=== PATIENT | female | born 1955 | race Caucasian/White ===

== ENCOUNTER 2017-05-11 07:04 | Emergency (ER) | payer MEDICAID, SELFPAY ==
[2017-05-11 07:13] VITALS: BP 120/66; PULSE 83; RESP 24; TEMP 37; O2SAT 96; BMI 16.9
--- NOTE | 2017-05-11 07:30 | XR_ITS ---
XR chest 2V INDICATION: Cough and weakness, smoker ORDERING PHYSICIAN: Casey Molina MD PATIENT AGE: 62 years FINDINGS: Unremarkable cardiovascular structures. There is COPD with chronic changes. Patchy density once again noted in the right upper lobe with right apical pleural thickening not significantly changed. This may be better evaluated with CT. The remaining lungs are clear. No acute bony anomalies. IMPRESSION: No change COPD with chronic changes in the right upper lobe may be better evaluated with CT.
--- NOTE | 2017-05-11 07:51 | HMH.EDURI ---
ED Disposition Condition on Discharge: Good - Critical Care Critical Care Time: No <Casey Molina - Last Filed: 05/11/17 07:51> <Eliecer Cruz - Last Filed: 05/11/17 09:22> Clinical Impression: Influenza Disposition: Home, Self-Care Instructions: DI for Fever (Symptom) -- Adult Additional Instructions: 1- rest. 2- plenty of liquids. 3- start tamiflyu as sooon as possible. 4- alternate tylenol and motrin. 5- see pcp in AM 6- return if not better in 2-3 days. Prescriptions: Oseltamivir Phosphate [Tamiflu 75mg Capsule] 75 mg PO BID #10 capsule Attestation: On 05/11/17, the high probability of a clinically significant, sudden or life threatening deterioration of the following system(s) required my full and direct attention, intervention and personal management. The time I documented below is in addition to time spent performing reported procedures but includes the following listed in this critical care notation. Medical Decision Making - Medical Records Medical records reviewed: Yes: I reviewed the patient's medical records. - Cong Inquiry Pt receiving controlled substance: No <Casey Molina - Last Filed: 05/11/17 07:51> - Lab Data Result diagrams: 05/11/17 07:45 05/11/17 07:45 - Radiology Data #1 Image(s): Chest Image Reviewed: Yes I reviewed the patient's radiology results Preliminary Findings: Normal/NAD - Cong Inquiry Cong was queried for this patient: No <Eliecer Cruz - Last Filed: 05/11/17 09:22> Vital Signs: 05/11/17 07:13 Temperature 98.6 F Temperature Source Oral Pulse Rate [Left Brachial] 83 Respiratory Rate 24 Blood Pressure [Left Arm] 120/66 Blood Pressure Mean [Left Arm] 84 Blood Pressure Source [Left Arm] Automatic Cuff Blood Pressure Position [Left Arm] Sitting 02 Sat by Pulse Oximetry 96 Oxygen Delivery Method Room Air Orders (Tests/Meds): ED MEDICATIONS Discontinued Medications Generic Name Dose Route Start Last Admin Trade Name Freq PRN Reason Stop Dose Admin Acetaminophen 1,000 mg 05/11/17 08:36 05/11/17 08:43 Tylenol 500mg Tablet PO 05/11/17 08:37 1,000 mg ONCE ONE Administration Sodium Chloride 1,000 mls @ 999 mls/hr 05/11/17 07:45 05/11/17 07:59 Sod Chloride 0.9% 1000ml Bag IV 05/11/17 08:45 999 mls/hr .Q1H1M CHIDI Administration ORDERS Category Date Time Status XR chest 2V Stat Exams 05/11/17 07:30 Taken URI/Sore Throat HPI - General Mode of Arrival: Ambulatory Source of Information: Patient, Relative Limitations: No Limitations Description of Symptoms (Recalled from ER Triage Doc. by RN): flulike symptoms, states has had body aches, fever,diarrhea, cough,congestion,runny. nose x 4 days - History of Present Illness MD Complaint: fever, cough Onset (ago): day(s) Duration: constant Severity: moderate Relieving factors: nothing Description of mucous: clear Able to tolerate fluids by mouth: Yes Associated symptoms: fever, myalgias Treatments prior to arrival: acetaminophen, ibuprofen <Casey Molina - Last Filed: 05/11/17 07:51> - History of Present Illness MD Complaint: other (non productive. 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
[2017-05-11 07:53] LABS: Basophils % 0.3 % (0.1-2.0); Eosinophils # 0.2 K/mm3 (0.0-0.4); Eosinophils % 2.2 % (0.1-12.0); Hemoglobin 13.9 g/dL (12.2-16.2); Lymphocytes # 1.6 K/mm3 (0.7-4.5); Lymphocytes % 22.9 K/mm3 (10-50); Mean Corpuscular Hemoglobin 30.8 pg (27.0-31.2); Mean Corpuscular Volume 90.6 fl (81-99); Mean Platelet Volume 8.5 fl (7.4-10.4); Monocytes # 0.3 K/mm3 (0.1-1.0); Monocytes % 4.2 % (1.7-9.3); Neutrophils % 70.3 % (37.0-80.0); Platelet Count 198 K/mm3 (142-424); Red Blood Count 4.52 M/mm3 (4.20-5.40); Red Cell Distribution Width 12.6 % (11.5-17.5); White Blood Count 7.1 K/mm3 (4.8-10.8)
--- NOTE | 2017-05-11 07:54 | ED_ITS ---
ED Disposition Condition on Discharge: Good - Critical Care Critical Care Time: No <Casey Molina - Last Filed: 05/11/17 07:51> <Eliecer Cruz - Last Filed: 05/11/17 09:22> Clinical Impression: Influenza Disposition: Home, Self-Care Instructions: DI for Fever (Symptom) -- Adult Additional Instructions: 1- rest. 2- plenty of liquids. 3- start tamiflyu as sooon as possible. 4- alternate tylenol and motrin. 5- see pcp in AM 6- return if not better in 2-3 days. Prescriptions: Oseltamivir Phosphate [Tamiflu 75mg Capsule] 75 mg PO BID #10 capsule Attestation: On 05/11/17, the high probability of a clinically significant, sudden or life threatening deterioration of the following system(s) required my full and direct attention, intervention and personal management. The time I documented below is in addition to time spent performing reported procedures but includes the following listed in this critical care notation. Medical Decision Making - Medical Records Medical records reviewed: Yes: I reviewed the patient's medical records. - Cong Inquiry Pt receiving controlled substance: No <Casey Molina - Last Filed: 05/11/17 07:51> - Lab Data Result diagrams: 05/11/17 07:45 05/11/17 07:45 - Radiology Data #1 Image(s): Chest Image Reviewed: Yes I reviewed the patient's radiology results Preliminary Findings: Normal/NAD - Cong Inquiry Cong was queried for this patient: No <Eliecer Cruz - Last Filed: 05/11/17 09:22> Vital Signs: 05/11/17 07:13 Temperature 98.6 F Temperature Source Oral Pulse Rate [Left Brachial] 83 Respiratory Rate 24 Blood Pressure [Left Arm] 120/66 Blood Pressure Mean [Left Arm] 84 Blood Pressure Source [Left Arm] Automatic Cuff Blood Pressure Position [Left Arm] Sitting 02 Sat by Pulse Oximetry 96 Oxygen Delivery Method Room Air Orders (Tests/Meds): ED MEDICATIONS Discontinued Medications Generic Name Dose Route Start Last Admin Trade Name Freq PRN Reason Stop Dose Admin Acetaminophen 1,000 mg 05/11/17 08:36 05/11/17 08:43 Tylenol 500mg Tablet PO 05/11/17 08:37 1,000 mg ONCE ONE Administration Sodium Chloride 1,000 mls @ 999 mls/hr 05/11/17 07:45 05/11/17 07:59 Sod Chloride 0.9% 1000ml Bag IV 05/11/17 08:45 999 mls/hr .Q1H1M CHIDI Administration ORDERS Category Date Time Status XR chest 2V Stat Exams 05/11/17 07:30 Taken URI/Sore Throat HPI - General Mode of Arrival: Ambulatory Source of Information: Patient, Relative Limitations: No Limitations Description of Symptoms (Recalled from ER Triage Doc. by RN): flulike symptoms, states has had body aches, fever,diarrhea, cough,congestion,runny. nose x 4 days - History of Present Illness MD Complaint: fever, cough Onset (ago): day(s) Duration: constant Severity: moderate Relieving factors: nothing Description of mucous: clear Able to tolerate fluids by mouth: Yes Associated symptoms: fever, myalgias Treatments prior to arrival: acetaminophen, ibuprofen <Casey Molina - Last Filed: 05/11/17 07:51> - History of Present Illness MD Complaint: other (non productive. ) Onset (ago): day(s) (3 days) Associated symptoms: cough <Viral Cruz
[2017-05-11 07:56] LABS: Anion Gap 11.3 mEq/L (5-15); Blood Urea Nitrogen 6 mg/dL (7-18); Carbon Dioxide 25 mmol/L (21.0-32.0); Chloride 105 mmol/L (98-107); Creatinine Clearance Estimated 67 mg/ml (0-300); Creatinine,Serum 0.61 mg/dL (0.55-1.02); Estimated Glomerular Filt Rate > 60 ml/min (>60); GFR (African American) > 60 ML/MIN (>60); Glucose 109 mg/dL (74-106); Potassium 3.3 mmoL/L (3.5-5.1); Sodium 138 mmol/L (136-145)
[2017-05-11 09:45] VITALS: BP 110/74; PULSE 70; RESP 14; TEMP 37.7; O2SAT 98
== END 2017-05-11 09:48 | disposition home or self-care (01) ==
PROVIDERS: Emergency Provider Emergency Medicine; Family Provider Emergency Medicine
DX: J11.1 Influenza due to unidentified influenza virus with other respiratory manifestations (principal)
CPT/HCPCS: 71046; 80048; 85025; 87275; 87276; 96365; 99284

== ENCOUNTER 2019-05-05 05:24 | Emergency (ER) | payer MEDICAID, SELFPAY ==
[2019-05-05 05:25] VITALS: BP 135/56; PULSE 113; RESP 16; TEMP 37.1; O2SAT 96
[2019-05-05 05:38] VITALS: BP 135/56; PULSE 113; RESP 16; TEMP 37.1; O2SAT 96; BMI 18.0
--- NOTE | 2019-05-05 06:00 | XR_ITS ---
PROCEDURE: XR CHEST 2V CLINICAL HISTORY: cough COMPARISON: CXR CHEST(2 VIEWS-NOT PORTABLE) from 01/31/2016 CXR2V XR chest 2V from 05/11/2017 FINDINGS: The cardiomediastinal silhouette and pulmonary vascularity are within normal limits. Hyperexpansion of the lung granados appear stable. The linear densities in the right upper lobe with associated pleural thickening remains stable. Lung granados are otherwise clear. No acute bony abnormalities. IMPRESSION: Chronic findings with probable scarring and pleural thickening in the right apex. Dictated by: Jacob Webb 05/05/2019 17:44 Electronically signed by Jacob Webb in [place] 05/05/2019 17:44
[2019-05-05 06:06] LABS: Basophils % 0.4 % (0.1-2.0); Eosinophils # 0.1 K/mm3 (0.0-0.4); Eosinophils % 1.4 % (0.1-12.0); Hematocrit 39.7 % (37.0-47.0); Hemoglobin 13.5 g/dL (12.2-16.2); Lymphocytes # 0.3 K/mm3 (0.7-4.5); Lymphocytes % 4.3 % (10-50); Mean Corpuscular HGB Conc 33.9 g/dL (31.8-35.4); Mean Corpuscular Hemoglobin 31.4 pg (27.0-31.2); Mean Corpuscular Volume 92.5 fl (81-99); Mean Platelet Volume 8.3 fl (7.4-10.4); Monocytes # 0.4 K/mm3 (0.1-1.0); Monocytes % 5.3 % (1.7-9.3); Neutrophils % 88.5 % (37.0-80.0); Platelet Count 257 K/mm3 (142-424); Red Blood Count 4.29 M/mm3 (4.20-5.40); Red Cell Distribution Width 12.9 % (11.5-17.5); White Blood Count 6.8 K/mm3 (4.8-10.8)
[2019-05-05 06:08] LABS: MANUAL DIFFERENTIAL MANUAL DIFFERENTIAL (MANUAL DIFF)
[2019-05-05 06:21] LABS: Alanine Aminotransferase 20 U/L (12-78); Albumin Level 3.9 gm/dL (3.4-5.0); Albumin/Globulin Ratio 1.1 (1.1-1.8); Alkaline Phosphatase 98 U/L (46-116); Aspartate Amino Transferase 15 U/L (15-37); Bilirubin,Total 0.3 mg/dL (0.2-1.0); Blood Urea Nitrogen 9 mg/dL (7-18); Calcium 8.9 mg/dL (8.5-10.1); Carbon Dioxide 25 mmol/L (21.0-32.0); Chloride 102 mmol/L (98-107); Creatinine Clearance Estimated 43 mL/min (50-200); Estimated Glomerular Filt Rate 85 ml/min (>60); GFR (African American) 103 ML/MIN (>60); Globulin 3.4 gm/dl (1.3-3.2); Glucose 125 mg/dL (74-106); Sodium 137 mmol/L (136-145); Total Protein,Serum 7.3 gm/dL (6.4-8.2)
[2019-05-05 06:22] LABS: C-Reactive Protein < 0.2 mg/dL (0.0-0.9)
[2019-05-05 06:49] LABS: Eosinophils % 1 % (0-3); Lymphocytes % 4 % (10-50); Monocytes % 5 % (2-9); Neutrophils % 90 % (42-76); Total Cells Counted 100
[2019-05-05 06:50] LABS: Platelet Estimate Normal; RBC Morphology Normal
[2019-05-05 06:51] LABS: Erythrocyte Sedimentation Rate 19 mm/hr (0-30)
--- NOTE | 2019-05-05 07:03 | HMH.EDSOB ---
ED Disposition Clinical Impression: Bronchitis COPD (chronic obstructive pulmonary disease) Qualifiers: COPD type: COPD with acute lower respiratory infection Qualified Code(s): J44.0 - Chronic obstructive pulmonary disease with (acute) lower respiratory infection Disposition: Home, Self-Care Condition on Discharge: Good Instructions: DI for Nausea -- Adult Additional Instructions: fluids and use meds and see pcp for follow up Prescriptions: levoFLOXacin [Levaquin 500mg tab] 500 mg PO DAILY #7 tab Transmission Status: Pending to [id number] predniSONE [Prednisone 20mg Tab] 20 mg PO BID #10 tab Transmission Status: Pending to [id number] Benzonatate [Tessalon Perle 100mg Cap] 100 mg PO TID #30 cap Transmission Status: Pending to [id number] Referrals: Casey Molina MD [Primary Care Provider] - - Critical Care Critical Care Time: No Attestation: On 05/05/19, the high probability of a clinically significant, sudden or life threatening deterioration of the following system(s) required my full and direct attention, intervention and personal management. The time I documented below is in addition to time spent performing reported procedures but includes the following listed in this critical care notation. Medical Decision Making - Medical Records Medical records reviewed: Yes: I reviewed the patient's medical records. - Cong Inquiry Pt receiving controlled substance: No Vital Signs: 05/05/19 05:25 05/05/19 05:38 Temperature 98.8 F 98.8 F Temperature Source Oral Oral Pulse Rate [Left Radial] 113 H 113 H Respiratory Rate 16 16 Blood Pressure [Right Arm] 135/56 L 135/56 L Blood Pressure Mean [Right Arm] 82 82 Blood Pressure Source [Right Arm] Automatic Cuff Automatic Cuff Blood Pressure Position [Right Arm] Sitting Sitting 02 Sat by Pulse Oximetry 96 96 Oxygen Delivery Method Room Air Room Air - Lab Data Lab results reviewed: Yes: I reviewed the patient's lab results. Lab Results 05/05/19 05:39: Influenza Type A Ag Negative, Influenza Type B Ag Negative 05/05/19 05:56: WBC 6.8, RBC 4.29, Hgb 13.5, Hct 39.7, MCV 92.5, MCH 31.4 H, MCHC 33.9, RDW 12.9, Plt Count 257, MPV 8.3, Neut % (Auto) 88.5 H, Lymph % (Auto) 4.3 L, Glenn % (Auto) 5.3, Eos % (Auto) 1.4, Baso % (Auto) 0.4, Neut # (Auto) 6.0, Lymph # (Auto) 0.3 L, Glenn # (Auto) 0.4, Eos # (Auto) 0.1, Baso # (Auto) 0.0, Total Counted 100, Neutrophils % (Manual) 90 H, Lymphocytes % (Manual) 4 L, Monocytes % (Manual) 5, Eosinophils % (Manual) 1, Platelet Estimate Normal, RBC Morphology Normal, ESR 19 05/05/19 05:56: Sodium 137, Potassium 4.0, Chloride 102, Carbon Dioxide 25, Anion Gap 14.0, BUN 9, Creatinine 0.70, Estimated Creat Clear 43, Estimated GFR 85, Est GFR ( Amer) 103, Glucose 125 H, Calcium 8.9, Total Bilirubin 0.3, AST 15, ALT 20, Alkaline Phosphatase 98, C-Reactive Protein < 0.2, Total Protein 7.3, Albumin 3.9, Globulin 3.4 H, Albumin/Globulin Ratio 1.1 Result diagrams: 05/05/19 05:56 05/05/19 05:56 Orders (Tests/Meds): ED MEDICATIONS Generic Name Dose Route Start Last Admin Trade Name Freq PRN Reason Stop Dose Admin Sodium Chloride 1,000 mls @ 999 mls/hr 05/05/19 06:15 05/05/19 06:12 Sod Chlor 0.9% 1000ml Bag IV 05/05/19 07:15 999 mls/hr .Q1H1M CHIDI Administration Discontinued Medications Generic Name Dose Route Start Last Admin Trade Name Freq PRN Reason Stop Dose Admin Methylprednisolone Sodium Succinate 125 mg 05/05/19 06:01 05/05/19 06:12 Solu-Medrol 125mg/2ml Vial IV 05/05/19 06:02 125 mg ONCE ONE Administration Ondansetron HCl 4 mg 05/05/19 06:01 05/05/19 06:12 Zofran 4mg/2ml Vial IV 05/05/19 06:02 4 mg ONCE ONE Administration ORDERS Category Date Time Status XR chest 2V Stat Exams 05/05/19 06:00 Taken Urinalysis and Microscopic Stat Lab 05/05/19 06:00 Ordered - Radiology Data #1 Image(s): Chest Image Reviewed:
[2019-05-05 07:29] VITALS: BP 132/57; PULSE 98; RESP 16; TEMP 37.1; O2SAT 97
== END 2019-05-05 07:31 | disposition home or self-care (01) ==
PROVIDERS: Emergency Provider Emergency Medicine; PCP Emergency Medicine
DX: J20.9 Acute bronchitis, unspecified (principal); J44.0 Chronic obstructive pulmonary disease with (acute) lower respiratory infection; F41.8 Other specified anxiety disorders; F17.210 Nicotine dependence, cigarettes, uncomplicated; Z88.0 Allergy status to penicillin; Z88.2 Allergy status to sulfonamides; Z79.899 Other long term (current) drug therapy
CPT/HCPCS: 71046; 80053; 85007; 85025; 85651; 86140; 87275; 87276; 96365; 96375; 99283; J2405

== ENCOUNTER → 2019-10-23 17:10 | Outpatient (CLI) | payer MEDICAID, SELFPAY ==
[2019-10-23 17:28] LABS: Basophils # 0.1 K/mm3 (0-0.2); Basophils % 0.6 % (0.1-2.0); Eosinophils # 0.1 K/mm3 (0.0-0.4); Eosinophils % 1.2 % (0.1-12.0); Hematocrit 44.9 % (37.0-47.0); Lymphocytes % 34.6 % (10-50); Mean Corpuscular HGB Conc 33.5 g/dL (31.8-35.4); Mean Corpuscular Hemoglobin 31.1 pg (27.0-31.2); Mean Corpuscular Volume 92.8 fl (81-99); Mean Platelet Volume 8.8 fl (7.4-10.4); Monocytes # 0.5 K/mm3 (0.1-1.0); Monocytes % 6.1 % (1.7-9.3); Neutrophils # 4.9 K/mm3 (1.8-7.8); Neutrophils % 57.5 % (37.0-80.0); Platelet Count 321 K/mm3 (142-424); Red Blood Count 4.83 M/mm3 (4.20-5.40); Red Cell Distribution Width 12.9 % (11.5-17.5); White Blood Count 8.5 K/mm3 (4.8-10.8)
[2019-10-23 17:36] LABS: Chloride 105 mmol/L (98-107); Sodium 137 mmol/L (136-145)
[2019-10-23 17:37] LABS: Potassium 4.4 mmoL/L (3.5-5.1)
[2019-10-23 17:39] LABS: Alanine Aminotransferase 17 U/L (12-78); Alkaline Phosphatase 101 U/L (38-126); Anion Gap 10.4 mEq/L (5-15); Aspartate Amino Transferase 30 U/L (14-36); Bilirubin,Total 0.6 mg/dl (0.2-1.3); Blood Urea Nitrogen 10 mg/dl (7-17); Carbon Dioxide 26 mmol/L (22.0-30.0); Cholesterol 233 mg/dl (140-200); Estimated Glomerular Filt Rate 101 ml/min (>60); GFR (African American) 123 ML/MIN (>60); Triglycerides 106 mg/dl (30-150); VLDL Cholesterol 21 mg/dL (0-40)
[2019-10-23 17:40] LABS: Albumin Level 4.7 g/dl (3.5-5.0); Albumin/Globulin Ratio 1.7 (1.1-1.8); Calcium 9.8 mg/dl (8.4-10.2); Chol/HDL Ratio 2.7 (1-3.5); Globulin 2.8 g/dL (1.3-3.2); Glucose 124 mg/dl (74-100); HDL Cholesterol 86 mg/dl (40-60); Magnesium 1.9 mg/dl (1.6-2.3); Total Protein,Serum 7.5 g/dl (6.3-8.2)
[2019-10-23 17:51] LABS: Direct LDL Cholesterol 129.52 mg/dL (100-129)
[2019-10-23 17:57] LABS: T4 (Thyroxine) 10.3 ug/dl (5.53-11.0)
[2019-10-23 18:11] LABS: Thyroid Stimulating Hormone 1.59 uIU/mL (0.465-4.68)
[2019-10-25 11:40] LABS: Hemoglobin A1C 5.8 % (4.0-6.0)
[2019-10-29 08:05] LABS: 1,25 Dihydroxy Vitamin D 68 pg/mL (.); 1,25-Dihydroxy, Vitamin D-2 <10 pg/mL (.); 1,25-Dihydroxy, Vitamin D-3 68 pg/mL (.)
== END ==
PROVIDERS: Visit Provider Physician Assistant
DX: M62.831 Muscle spasm of calf (principal); R53.83 Other fatigue; R73.09 Other abnormal glucose; E67.3 Hypervitaminosis D
CPT/HCPCS: 80053; 80061; 82652; 83036; 83735; 84436; 84443; 85025

== ENCOUNTER → 2019-10-31 07:59 | Outpatient (CLI) | payer MEDICAID, SELFPAY ==
--- NOTE | 2019-10-31 08:01 | MM_ITS ---
PROCEDURE: MM DIG SCREENING MAMM BI W/CAD Digital Breast Tomosynthesis Included CLINICAL INDICATION: screening There is no personal or family history of breast cancer. COMPARISON: No exams were available for comparison TECHNIQUE: Standard CC and MLO images and 3D Tomosynthesis was obtained. R2 CAD reviewed. FINDINGS: Moderate diffuse fibroglandular densities are seen throughout both breasts and the findings of bilateral and symmetrical. There are 2 mole markers right breast. There are couple of benign-appearing calcifications left breast. Chon images were reviewed showing no suspicious abnormality. There are no suspicious microcalcifications. IMPRESSION: Moderate diffuse breast density with no suspicious lesions seen BI-RAD Category: 2 Benign Finding(s) FOLLOW-UP: 1YR 1 Year Follow-up (A letter has been sent to the patient regarding results of the study.) Dictated by: Dr. Edgardo Diop MD 11/01/2019 16:[address] Edgardo Diop MD in [place] 11/01/2019 16:19
== END ==
PROVIDERS: PCP Emergency Medicine; Visit Provider Physician Assistant
DX: Z12.31 Encounter for screening mammogram for malignant neoplasm of breast (principal)
CPT/HCPCS: 77063; 77067

== ENCOUNTER → 2020-03-20 08:40 | Outpatient (CLI) | payer MEDICAID, SELFPAY ==
--- NOTE | 2020-03-20 08:44 | XR_ITS ---
PROCEDURE: XR SHOULDER RT MIN 2V CLINICAL INDICATION: right shoulder pain COMPARISON: CR SHOU3R [id number] VIEWS from 04/21/2014 CR SHOU3R [id number] VIEWS from 08/27/2015 CR SHOU3R [id number] VIEWS from 12/23/2016 FINDINGS: Mild osteoarthritic changes are present at the glenohumeral joint. No lytic or blastic change. No fracture or dislocation. The AC joint has an unremarkable appearance. No significant subacromial stenosis. Other findings:None. IMPRESSION: Mild osteoarthritis of the right shoulder Dictated by: Jai Gamino MD 03/21/2020 10:11 Jai Gamino MD in [place] 03/21/2020 10:11
== END ==
PROVIDERS: PCP Emergency Medicine; Visit Provider Orthopaedic Surgery
DX: M25.511 Pain in right shoulder (principal)
CPT/HCPCS: 73030

== ENCOUNTER 2020-04-03 08:00 | Outpatient (RCR) | payer MEDICAID, SELFPAY ==
--- NOTE | 2020-03-14 10:35 | HMH.OTOPEV ---
OT Inpatient Evaluation Rehab OT Outpatient Eval Start: 03/14/20 10:25 Freq: Status: Active Protocol: Document 03/14/20 10:26 RMMANUEL (Rec: 03[facility]14/20 10:35 [id number] Electronically Signed By Renae Muñoz OT 03/14/20 10:26 Outpatient Therapy Subjective History Subjective History Pt is a 64 year old female who reports to therapy for initial evaluation to right shoulder. Pt reports she has had decreased AROM and strength for years at right shoulder. She does not recall a specific injury causing the shoulder issues. Pt claims within the last 6 months the shoulder has become significantly worse due to her new job. 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 Pt does demonstrate with significant decrease in AROM and strength. Pt will continue to be seen twice a week in order to address all deficits. Chief Complaint Pain,Stiff,Weakness Symptom Type Ache,Throb,Sharp,Dull,Stabbing Symptoms Relieved By Nothing Symptoms Aggravated By Physical Activity,Lifting Prior Functional Limitations None Current Functional Limitations Reaching,Lifting,Housework, Dressing,Driving,Sleeping, Recreation Activity Symptom Description Constant but Variable Level of pain today (0-10) 9 Pain scale - at its best (0-10) 5 Pain scale - at its worst (0-10) 10 Shoulder/Elbow Eval Shoulder Objective Measurements Shoulder ROM Right Shoulder ROM Limitations Pain Shoulder Abduction Active Range of 65 degrees Motion (degrees) Shoulder Flexion Active Range of Motion 55 degrees (degrees) Query Text: Shoulder External Rotation Active Range 30 degrees of Motion (degrees) Shoulder Internal Rotation Active Range 30 degrees of Motion (degrees) pain with active ROM shoulder exam right standard pain with passive ROM shoulder exam right standard decreased ROM shoulder exam standard right Shoulder MMT Shoulder Abdu
== END 2020-04-03 08:05 | disposition home or self-care (01) ==
LOC: OT 08:00
PROVIDERS: Visit Provider Physician Assistant
DX: M25.511 Pain in right shoulder (principal)
CPT/HCPCS: 97014; 97110; 97140; 97166; G0283

== ENCOUNTER → 2020-05-08 13:43 | Outpatient (CLI) | payer MEDICAID, SELFPAY ==
--- NOTE | 2020-05-08 13:43 | MR_ITS ---
PROCEDURE: MR SHOULDER RT WO CON CLINICAL INDICATION: shouder pain Chronic right shoulder pain with limited range of motion and swelling COMPARISON: DX XR SHOULDER RT MIN 2V from 03/20/2020 TECHNIQUE: Routine multiplanar multi echo sequences are performed without gadolinium enhancement. FINDINGS: This exam is submitted to me for interpretation on 05/22/2020. Minimal hypertrophic changes of the acromioclavicular joint. No significant subacromial stenosis. There is heterogeneous signal intensity within the supraspinatus tendon which is slightly thickened consistent with tendinopathy/tendinosis. Distally there is a small focal area of increased T2 signal suggesting partial tear of the supraspinatus tendon. A full-thickness tear is not felt to be present. Tendinopathy/tendinosis also noted of the infraspinatus tendon. The teres minor and subscapularis tendons are intact. There is some thickening with increased T2 signal also of the subscapularis tendon suggesting tendinopathy/tendinosis. The bicipital tendon is in place. No labral tear is evident. IMPRESSION: Tendinopathy/tendinosis of the rotator cuff involving supraspinatus infraspinatus and subscapularis tendons. Suspected partial tear of the distal and inferior aspect of the supraspinatus tendon. A complete tear is not felt to be present. Mild acromioclavicular arthropathy. Dictated by: Jai Gamino MD 05/22/2020 08:33 Jai Gamino MD in [place] 05/22/2020 08:33
== END ==
PROVIDERS: PCP Emergency Medicine; Visit Provider Orthopaedic Surgery
DX: G56.01 Carpal tunnel syndrome, right upper limb (principal); G89.29 Other chronic pain; M25.511 Pain in right shoulder
CPT/HCPCS: 73221

== ENCOUNTER 2020-05-28 15:47 | Outpatient (RCR) | payer MEDICAID, SELFPAY | END 2020-05-28 16:24 | disposition home or self-care (01) | LOC: OT 15:47 | PROVIDERS: Visit Provider Orthopaedic Surgery | DX: G56.01 Carpal tunnel syndrome, right upper limb (principal) | CPT/HCPCS: 97763 ==

== ENCOUNTER → 2020-06-03 08:12 | Outpatient (CLI) | payer MEDICAID, SELFPAY ==
[2020-06-03 08:14] LABS: Microscopic, Urine URINE MICROSCOPIC (MICROSCOPIC)
--- NOTE | 2020-06-03 08:28 | XR_ITS ---
PROCEDURE: XR CHEST 2V CLINICAL HISTORY: right shoulder pain COPD, smoker COMPARISON: CR XR CHEST 2V from 05/05/2019 CR XR CHEST PORTABLE from 08/14/2019 CR XR CHEST 2V from 12/18/2019 FINDINGS: The cardiomediastinal silhouette and pulmonary vascularity are within normal limits. Biapical pleural thickening with COPD. Faint increased density is present in the right upper lobe. There are fibrotic changes in the upper lung zone as seen on the lateral view. Overall these findings do not appear significantly changed 05/05/2019 No acute bony abnormalities. IMPRESSION: COPD with chronic changes. No acute finding Dictated by: Jai Gamino MD 06/03/2020 17:22 Jai Gamino MD in [place] 06/03/2020 17:22
[2020-06-03 08:33] LABS: Appearance,Urine CLEAR (Clear); Bilirubin,Urine Negative (Negative); Blood, Urine 1+ (Negative); Color,Urine YELLOW (Yellow); Glucose,Urine (UA) Negative (Negative); Ketones,Urine Negative (Negative); Leukocyte Esterase,Urine Negative (Negative); Nitrate,Urine Negative (Negative); Protein,Urine Negative (Negative); Specific Gravity, Urine <= 1.005 (1.005-1.030); Urobilinogen,Urine 0.2 EU/dl (0.2)
[2020-06-03 08:43] LABS: Basophils # 0.1 K/mm3 (0-0.2); Basophils % 1.1 % (0.1-2.0); Eosinophils # 0.2 K/mm3 (0.0-0.4); Eosinophils % 3.2 % (0.1-12.0); Hematocrit 45.7 % (37.0-47.0); Lymphocytes # 3.2 K/mm3 (0.7-4.5); Lymphocytes % 44.5 % (10-50); Mean Corpuscular HGB Conc 32.8 g/dL (31.8-35.4); Mean Corpuscular Volume 94.3 fl (81-99); Mean Platelet Volume 8.6 fl (7.4-10.4); Monocytes # 0.5 K/mm3 (0.1-1.0); Monocytes % 6.2 % (1.7-9.3); Neutrophils # 3.3 K/mm3 (1.8-7.8); Neutrophils % 44.9 % (37.0-80.0); Platelet Count 350 K/mm3 (142-424); Red Blood Count 4.84 M/mm3 (4.20-5.40); Red Cell Distribution Width 13.2 % (11.5-17.5); White Blood Count 7.2 K/mm3 (4.8-10.8)
[2020-06-03 09:20] LABS: Activated Partial Thrombo Time 23.3 seconds (23.6-34.0); INR 0.99 (0.9-1.1)
[2020-06-03 09:51] LABS: Alanine Aminotransferase 15 U/L (12-78); Albumin Level 4.7 g/dl (3.5-5.0); Albumin/Globulin Ratio 1.6 (1.1-1.8); Alkaline Phosphatase 91 U/L (38-126); Anion Gap 14.1 mEq/L (5-15); Aspartate Amino Transferase 25 U/L (14-36); Bilirubin,Total 0.3 mg/dl (0.2-1.3); Blood Urea Nitrogen 8 mg/dl (7-17); Calcium 10.3 mg/dl (8.4-10.2); Carbon Dioxide 29 mmol/L (22.0-30.0); Chloride 104 mmol/L (98-107); Estimated Glomerular Filt Rate 85 ml/min (>60); GFR (African American) 102 ML/MIN (>60); Globulin 2.9 g/dL (1.3-3.2); Glucose 110 mg/dl (74-100); Potassium 4.1 mmoL/L (3.5-5.1); Sodium 143 mmol/L (136-145); Total Protein,Serum 7.6 g/dl (6.3-8.2)
[2020-06-04 14:49] LABS: Prealbumin 23 mg/dL (10-36)
== END ==
PROVIDERS: Visit Provider Physician Assistant
DX: M12.811 Other specific arthropathies, not elsewhere classified, right shoulder (principal); M75.101 Unspecified rotator cuff tear or rupture of right shoulder, not specified as traumatic; R79.1 Abnormal coagulation profile
CPT/HCPCS: 36415; 71046; 80053; 81001; 84134; 85025; 85610; 85730

== ENCOUNTER → 2020-06-04 13:59 | Outpatient (CLI) | payer MEDICAID, SELFPAY ==
--- NOTE | 2020-06-04 14:22 | ECG_ITS ---
APPROVED REPORT Exam: Resting ECG HR:68 bpm ECG Measurements Heart Rate 68 AXES [place] 158 P 81 QRSd 78 QRS 76 QT 408 T 80 QTc 433 Conclusion Normal sinus rhythm Normal ECG Electronically signed by : Portillo Barrera, 06/05/2020 05:56:28
== END ==
PROVIDERS: PCP Emergency Medicine; Visit Provider Physician Assistant
DX: Z01.810 Encounter for preprocedural cardiovascular examination (principal); M75.101 Unspecified rotator cuff tear or rupture of right shoulder, not specified as traumatic; M12.811 Other specific arthropathies, not elsewhere classified, right shoulder
CPT/HCPCS: 93005

== ENCOUNTER → 2020-06-29 12:45 | Outpatient (CLI) | payer MEDICAID, SELFPAY ==
[2020-06-29 14:31] LABS: Coronavirus 19 IgG Antibody Negative (Negative); Coronavirus 19 IgM Antibody Negative (Negative)
== END ==
PROVIDERS: Visit Provider Orthopaedic Surgery
DX: Z01.818 Encounter for other preprocedural examination (principal); Z20.822 Contact with and (suspected) exposure to COVID-19; M25.511 Pain in right shoulder; M75.51 Bursitis of right shoulder; M75.21 Bicipital tendinitis, right shoulder; M67.911 Unspecified disorder of synovium and tendon, right shoulder; M75.41 Impingement syndrome of right shoulder; M75.110 Incomplete rotator cuff tear or rupture of unspecified shoulder, not specified as traumatic
CPT/HCPCS: 36415; 86328

== ENCOUNTER 2020-07-01 08:41 | Day surgery (SDC) | payer MEDICAID, SELFPAY ==
[2020-06-25 12:54] VITALS: BMI 18.4
[2020-07-01] VITALS (11 sets, daily range): BP systolic 120–160; BP diastolic 67–86; PULSE 65–89; RESP 16–70; TEMP 36.4–43; O2SAT 95–100
--- NOTE | 2020-07-01 14:35 | HMH.ANESCL ---
[facility] Anesthesia Checklist - Structural Data Admitted From: Home Planned Operative Procedure/s: r shoulder arthro Consent for Planned Operative Procedure(s) Verified: Yes - Additional verifications Anesthesia Reactions: Yes (nausea) Hx Blood Transfusions: No Blood Transfusion Reaction: No - Airway Assessment C-Spine Mobility Assessed: Yes TMJ Mobility Assessed: Yes Dentition: Dentures-good fit - Neurological Assessment Level of Consciousness: Awake, Alert, Appropriate - Anesthesia Plan Anesthesia Risk discussed: Yes Anesthesia Plan: Verified ASA Class: II Anesthesia Type: General w/block [facility] History I have reviewed the patient's past medical history: Yes Medical History: Reports:: Anxiety, Chronic Obstructive Pulmonary Disease (COPD), Depression Denies:: Cancer, Diabetes Mellitus Type 1, Diabetes Mellitus Type 2, MRSA, Seizures *Have you ever received a pneumonia vaccine?: No *Have you received a flu vaccine this season?: No Other Medical History: Reports: Arthritis. Denies: Blood Transfusion Reaction Anesthesia experience/problems:: none Other Surgeries: Yes: Cholecystectomy, Tubal Ligation, Other Amputation: No Fractures: No - *Social History Last grade of school completed: High school graduate Smoking Status: Current every day smoker Tobacco Type: cigarettes # Packs/Day (cigarettes): 1 Alcohol Intake: never Substance Use Type: denies use *Occupational Status:: unemployed Housing: apartment Household Members: significant other *Travel in the last 8 weeks: None - Psychiatric History Pschychiatric History:: Reports:: Anxiety, Depression Family Hx:: Coronary Artery Disease, Hypertension, Hyperlipidemia, Stroke
--- NOTE | 2020-07-01 20:03 | HMH.OPNOTE ---
Date of procedure: 07/01/20 Pre-op Diagnosis:: 1. Partial-thickness Rotator cuff tear RIGHT shoulder 2. Biceps tendinopathy RIGHT shoulder 3. Subacromial bursitis RIGHT shoulder 4. Subacromial impingement RIGHT shoulder 5. Rotator cuff tendinopathy RIGHT shoulder 6. AC joint arthritis RIGHT shoulder Post-op Diagnosis:: Same Procedure performed:: 1. Arthroscopic glenohumeral joint debridement, extensive, RIGHT shoulder. 2. Arthroscopic biceps tenodesis, RIGHT shoulder 3. Arthroscopic subacromial decompression with subacromial and subdeltoid bursectomy and bony acromioplasty, RIGHT shoulder. 4.? Arthroscopic distal clavicle excision, RIGHT shoulder Surgeon:: Teodoro Dowd MD Shoe Caser(s):: Essence Andino COMBINER OPERATOR:: Alfonso Irwin Anesthesia: GETA, regional (Interscalene nerve block) Estimated blood loss (mL): 5 Clinical Note:: Patient is a 65-year-old [id number] female with history of pain and disability in her RIGHT shoulder for a long time. She had weakness and difficulty with the use of the arm. She has failed to respond satisfactorily to conservative management over many years including NSAIDs, multiple local steroid injections and physical therapy sessions. Preoperative evaluation was consistent with the above mentioned diagnosis. After discussion of the risks and benefits of the surgical versus nonsurgical management, she elected to proceed with surgical remediation. Please refer to my office note for full details. Operative findings:: There was a superficial bursal sided low-grade partial-thickness tear of the anterior aspect of the supraspinatus tendon. The articular surface of the rotator cuff was noted to be intact. There was fraying of the labrum around the biceps anchor and the biceps tendon showed synovitis in the bicipital groove. At the time of arthroscopic tenodesis marked synovitis and thickening was noted in the extra-articular part of the biceps tendon. The labrum was frayed all around but not detached. The articular surface of the humerus and and the glenoid had minor degenerative changes with a focal area of grade 2 changes in the center of the glenoid. There was extensive subacromial and subdeltoid bursitis and the acromion had undersurface spurring over the anterolateral margin. Osteophytes were noted over the undersurface of the AC joint. Operative note:: On the day of the procedure, the patient was met and positively identified in the preoperative area. The surgical site was marked and initialed by me. I again reviewed the clinical, x- ray and MRI findings with the patient. We had a detailed discussion about the diagnosis, implications, natural history and management options including both nonsurgical and surgical options for her shoulder. She has decided to proceed with surgery as planned- the proposed surgery includes arthroscopic glenohumeral joint examination and debridement as appropriate, subacromial decompression with bony acromioplasty, rotator cuff repair/debridement as needed, distal clavicle excision and arthroscopic or open biceps tenodesis. Nonsurgical alternatives explained as well which in her case would be rest, activity modification, local ice or heat as appropriate, physical therapy, local steroid injections, nonsteroidal anti-inflammatory drugs and effective pain management. I told the patient that there were no guarantees with surgery; she could be no better or even worse. The complications discussed include but are not limited to- infection, injury to nerves and blood vessels, bleeding, hematoma, tendon injury, fluid extravasation, chondrolysis, injury to the articular surface, instrument failure, DVT/PE, incomplete relief/continued pain, failure of the condition to improve, incomplete return of function, ectopic calcification, reactive bursitis, adhesive capsulitis, shoulder instability, arthritis, stiffness, complex regional pain syndrome (CRPS), recurrence, hardware failure, anchor pullout and acromi
--- NOTE | 2020-07-02 09:16 | P.PN_ITS ---
[facility] Anesthesia Record Part II Discharge Time: 17:24 Destination: Surgical Day Care (OP Surgery) PACU nurse assessment reviewed?: Yes Patient Condition:: Good Anesthesia Complications:: None Swallowing reflex intact?: Yes Cyanosis?: No Blood Pressure: 151/77 Pulse Rate: 64 Temperature: 97.7 F Mental Status: Alert & Oriented Pain level:: 0 Nausea and/or vomitting:: None Intake, IV Amount: 0
[2020-07-02 09:17] VITALS: BP 151/77; PULSE 64; TEMP 36.5
== END 2020-07-01 17:59 | disposition home or self-care (01) ==
LOC: OR 08:44
PROVIDERS: PCP Emergency Medicine; Visit Provider Orthopaedic Surgery
PROC: (CPT 29805; principal; 2020-07-01 10:15)
DX: M75.111 Incomplete rotator cuff tear or rupture of right shoulder, not specified as traumatic (principal); M75.51 Bursitis of right shoulder; M19.011 Primary osteoarthritis, right shoulder
CPT/HCPCS: 29827; 29828; 29826; 96374; C1713; J2405; J2710

== ENCOUNTER 2020-08-21 12:00 | Outpatient (CLI) | payer MEDICAID, SELFPAY ==
[2020-08-21 12:10] VITALS: BMI 18.2
[2020-08-21 12:29] LABS: Adenovirus,PCR Not Detected (NotDetected); Bordetella Pertussis Not Detected (NotDetected); Chlamydophila Pneumoniae, PCR Not Detected (NotDetected); Coronavirus 19, PCR Not Detected (NotDetected); Coronavirus 229E Not Detected (NotDetected); Coronavirus OC43 Not Detected (NotDetected); Coronovirus HKU1,PCR Not Detected (NotDetected); Human Metapneumovirus Not Detected (NotDetected); Influenza A, PCR Not Detected (NotDetected); Influenza AH1, 2009 Not Detected (NotDetected); Influenza AH1, PCR Not Detected (NotDetected); Influenza AH3,PCR Not Detected (NotDetected); Influenza B, PCR Not Detected (NotDetected); Mycoplasma Pneumoniae, PCR Not Detected (NotDetected); Parainfluenza 1, PCR Not Detected (NotDetected); Parainfluenza 2, PCR Not Detected (NotDetected); Parainfluenza 3, PCR Not Detected (NotDetected); Parainfluenza 4, PCR Not Detected (NotDetected); Respiratory Syncytial Virus Not Detected (NotDetected); Rhinovirus/Enterovirus Not Detected (NotDetected)
--- NOTE | 2020-08-21 12:45 | XR_ITS ---
PROCEDURE: XR CHEST PORTABLE CLINICAL HISTORY: RULE OUT COVID Cough COMPARISON: CR XR CHEST PORTABLE from 08/14/2019 CR XR CHEST 2V from 12/18/2019 CR XR CHEST 2V from 06/03/2020 FINDINGS: The cardiomediastinal silhouette and pulmonary vascularity are within normal limits. There are increased markings in the right upper lobe medially. This had a similar appearance on previous studies and may be due to summation density from the overlying ribs and pleural thickening. Chest CT may confirm.. The remaining lungs are clear. No acute bony abnormalities. IMPRESSION: Increased markings right upper lobe medially possibly due to summation artifact from overlying pleural thickening and ribs. Chest CT may confirm as underlying pulmonary parenchymal pathology is not excluded.. Otherwise negative Dictated by: Jai Gamino MD 08/21/2020 13:22 Jai Gamino MD in [place] 08/21/2020 13:22
[2020-08-21 13:15] VITALS: BP 143/68; PULSE 77; RESP 20; TEMP 36.2; O2SAT 99
[2020-08-21 13:45] VITALS: BP 154/77; PULSE 75; RESP 18
[2020-08-21 13:53] LABS: Adenovirus F 40/41, stool Not Detected (NotDetected); Astrovirus Not Detected (NotDetected); Campylobacter Not Detected (NotDetected); Clostridium Difficile A/B, PCR Not Detected (NotDetected); Cryptosporidium Not Detected (NotDetected); Cyclospora Cayetanesis Not Detected (NotDetected); Entamoeba histolytica Not Detected (NotDetected); Enteroaggregative E coli Not Detected (NotDetected); Enteropathogenic E coli Not Detected (NotDetected); Enterotoxigenic E coli Not Detected (NotDetected); Giardia lamblia Not Detected (NotDetected); Norovirus Not Detected (NotDetected); Plesimonas Shigalloides, PCR Not Detected (NotDetected); Rotavirus A Not Detected (NotDetected); Salmonella, PCR Not Detected (NotDetected); Sapovirus Not Detected (NotDetected); Shiga-like toxin E coli Not Detected (NotDetected); Shigella Enterovasive E coli Not Detected (NotDetected); Vibrio Cholerae Not Detected (NotDetected); Vibrio, PCR Not Detected (NotDetected); Yersinia Entercolitica, PCR Not Detected (NotDetected)
[2020-08-21 13:56] LABS: Coronavirus NL63 Detected (NotDetected)
[2020-08-21 14:40] VITALS: BP 130/52; PULSE 79; RESP 18
== END 2020-08-21 14:50 | disposition home or self-care (01) ==
LOC: INF 12:14
PROVIDERS: Visit Provider Physician Assistant
DX: R05 Cough (principal); R11.2 Nausea with vomiting, unspecified; R19.7 Diarrhea, unspecified
CPT/HCPCS: 71045; 87507; 87581; 87633; 87798; 96360; 96367; 96375; J2405

== ENCOUNTER 2020-09-02 09:53 | Outpatient (RCR) | payer MEDICAID, SELFPAY ==
--- NOTE | 2020-09-02 10:55 | HMH.OTOPEV ---
OT Inpatient Evaluation Rehab OT Outpatient Eval Start: 09/02/20 10:45 Freq: Status: Active Protocol: Document 09/02/20 10:45 HEMAL (Rec: 09/02/20 10:55 HEMAL [id number]) Electronically Signed By Munira Vargas OT 09/02/20 10:45 Outpatient Therapy Subjective History Subjective History Date of procedure: 07/01/20 Pre-op Diagnosis:: 1. Partial-thickness Rotator cuff tear RIGHT shoulder 2. Biceps tendinopathy RIGHT shoulder 3. Subacromial bursitis RIGHT shoulder 4. Subacromial impingement RIGHT shoulder 5. Rotator cuff tendinopathy RIGHT shoulder 6. AC joint arthritis RIGHT shoulder Post-op Diagnosis:: Same Procedure performed:: 1. Arthroscopic glenohumeral joint debridement, extensive, RIGHT shoulder. 2. Arthroscopic biceps tenodesis, RIGHT shoulder 3. Arthroscopic subacromial decompression with subacromial and subdeltoid bursectomy and bony acromioplasty, RIGHT shoulder. 4.? Arthroscopic distal clavicle excision, RIGHT shoulder Surgeon:: Teodoro Dowd MD Fan Mail Clerk(s):: Essence nAdino [employer] COUNSELOR:: Alfonso Irwin Anesthesia: GETA, regional ( Interscalene nerve block) Estimated blood loss (mL): 5 Clinical Note:: Patient is a 65-year-old right -hand-dominant female with history of pain and disability in her RIGHT shoulder for a long time. She had weakness and difficulty with the use of the arm. She has failed to respond satisfactorily to conservative management over
== END 2020-09-02 09:55 | disposition home or self-care (01) ==
LOC: OT 09:53
PROVIDERS: Visit Provider Orthopaedic Surgery
DX: M25.511 Pain in right shoulder (principal); M75.110 Incomplete rotator cuff tear or rupture of unspecified shoulder, not specified as traumatic; M67.911 Unspecified disorder of synovium and tendon, right shoulder; M75.41 Impingement syndrome of right shoulder; M75.51 Bursitis of right shoulder
CPT/HCPCS: 97165

== ENCOUNTER 2020-09-05 19:40 | Emergency (ER) | payer MEDICAID, SELFPAY ==
[2020-09-05 19:58] VITALS: BP 135/70; PULSE 102; RESP 24; TEMP 37.1; O2SAT 97; BMI 18.2
--- NOTE | 2020-09-05 20:11 | HMH.EDUTC ---
[facility] [place] Clinical Impression: Gastroenteritis COPD (chronic obstructive pulmonary disease) Qualifiers: COPD type: unspecified COPD Qualified Code(s): J44.9 - Chronic obstructive pulmonary disease, unspecified Disposition: Home, Self-Care Condition on Discharge: Good Instructions: DI for Chronic Obstructive Pulmonary Disease Additional Instructions: Drink plenty of fluids. Water or gatorade (or another electrolyte sports drink) or pedialyte would be best. Take tylenol or ibuprofen for pain or fever. Take the medications as directed. Follow up with your regular doctor. GO TO THE ER FOR ANY WORSENING SYMPTOMS Prescriptions: Ondansetron [Zofran 4mg ODT] 4 mg PO Q8HP PRN #20 tab.rapdis PRN Reason: Nausea Transmission Status: Received by [id number] Loperamide HCl [Imodium 2 mg capsule] 2 mg PO DIRECTED PRN #24 cap PRN Reason: Diarrhea Transmission Status: Received by [id number] Referrals: Casey Molina MD [Primary Care Provider] - Time of Disposition: 20:22 Medical Decision Making - Medical Records Medical records reviewed: No: I reviewed the patient's medical records. - Cong Inquiry Pt receiving controlled substance: No Vital Signs: 09/05/20 19:58 09/05/20 20:19 Temperature 98.8 F 98 F Temperature Source Oral Pulse Rate 105 H Pulse Rate [Right] 102 H Respiratory Rate 24 21 Blood Pressure 139/68 Blood Pressure [Right Arm] 135/70 Blood Pressure Mean [Right Arm] 91 Blood Pressure Source [Right Arm] Automatic Cuff Blood Pressure Position [Right Arm] Sitting 02 Sat by Pulse Oximetry 97 Oxygen Delivery Method Room Air Orders (Tests/Meds): ED MEDICATIONS Discontinued Medications Generic Name Dose Route Start Last Admin Trade Name Freq PRN Reason Stop Dose Admin Ondansetron HCl 4 mg 09/05/20 20:08 Ondansetron 4mg/2ml Vial IM 09/05/20 20:09 ONCE ONE Ondansetron HCl 4 mg 09/05/20 20:11 09/05/20 20:13 Ondansetron 4mg Odt SL 09/05/20 20:12 4 mg ONCE ONE Administration [facility] [place] - General Stated complaint: v&D,SOB Time Seen by Provider: 09/05/20 20:12 Mode of Arrival: Ambulatory Source of Information: Patient Limitations: No Limitations Description of Symptoms (Recalled from Triage Doc. by RN): PT STATES SHE HAS HAD N/V/D AND SOA X3 DAYS. HEENT Symptoms (Recalled from RN notes): No Resp Symptoms (Recalled from RN notes): Yes (SOA AND COUGH) Skin Symptoms (Recalled from RN notes): No MS Symptoms (Recalled from RN notes): No Functional Status (Recalled from RN notes): NA - History of Present Illness Provider Complaint: She states that she has had n/v/d since yesterday. She does not have any medication for vomiting at home. She denies any worsening shortness of breath. She denies abdominal pain. - Related Data Home Medications Medication Instructions Recorded Confirmed Fluticasone Propionate [Flonase 1 spray INTRANASAL DAILY 08/14/19 09/06/20 Allergy Relief NS] Ibuprofen See Rx Instructions .ROUTE .COMPLEX 08/21/20 08/21/20 Previous Rx's Medication Instructions Recorded ipratropium 0.5 mg-albuterol 3 mg 3 ml INHALATION TID PRN #180 ml 07/13/19 (2.5 mg base)/3 mL nebulization soln Albuterol Sulfate [Albuterol HFA 2 puffs IH Q6HP PRN #1 inh 08/14/19 Inhaler] cetirizine 10 mg capsule 10 mg PO DAILY #90 cap 02/04/20 cyclobenzaprine 5 mg tablet 5 mg PO TID PRN #20 tab 07/01/20 Loperamide HCl [Imodium 2 mg 2 mg PO DIRECTED PRN #24 cap 09/05/20 capsule] Ondansetron [Zofran 4mg ODT] 4 mg PO Q8HP PRN #20 tab.rapdis 09/05/20 azithromycin 250 mg tablet See Rx Instructions PO .COMPLEX #6 09/06/20 tab prednisone 20 mg tablet 20 mg PO BID 5 Days #10 tab 09/06/20 Allergies Allergy/AdvReac Type Severity Reaction Status Date / Time codeine Allergy Verified 09/06/20 11:11 Iodinated Contrast Media Allergy Anaphylaxis Verified 09/06/20 11:11 [Iodinated Contrast Media -
[2020-09-05 20:19] VITALS: BP 139/68; PULSE 105; RESP 21; TEMP 36.6
== END 2020-09-05 20:49 | disposition home or self-care (01) ==
PROVIDERS: Emergency Provider Nurse Practitioner Family; PCP Emergency Medicine
DX: K52.9 Noninfective gastroenteritis and colitis, unspecified (principal); J44.9 Chronic obstructive pulmonary disease, unspecified; F41.8 Other specified anxiety disorders; E78.5 Hyperlipidemia, unspecified; Z95.0 Presence of cardiac pacemaker; F17.210 Nicotine dependence, cigarettes, uncomplicated; Z79.899 Other long term (current) drug therapy
CPT/HCPCS: 99202; G0463

== ENCOUNTER → 2020-09-12 15:27 | Outpatient (CLI) | payer MEDICAID, SELFPAY ==
--- NOTE | 2020-09-12 15:27 | CT_ITS ---
PROCEDURE: CT CHEST WO CON CLINICAL INDICATION: Abnormal chest xray Follow up Abn CXR 08/21/2020, smoker COMPARISON: CR CXR CHEST(2 VIEWS-NOT PORTABLE) from 01/31/2016 CR XR CHEST PORTABLE from 08/21/2020 TECHNIQUE: Axial images obtained with sagittal and coronal reformats. All CT scans at the facility use one or more dose reduction, viz: automated exposure control, ma/kV adjustment per patient size (including targeted exams where dose is matched to indication, i.e. head), or iterative reconstruction technique. FINDINGS: HEART AND MEDIASTINAL STRUCTURES: Calcified nodes are present in the mediastinum. There are coronary artery calcifications and/or stents noted. Minimal thickening of the pericardium present anteriorly. LUNGS AND PLEURAL SPACES: There is biapical pleural thickening right greater than left. There is some volume loss noted in the right apex. There is mild diffuse bronchial thickening. A pleural-based ridge like area of increased density is present in the posterior aspect of the right upper lobe accounting for the radiographic abnormality.. There is also some asymmetrical pleural based thickening in the right apex laterally. There are centrilobular emphysematous changes in the apices right greater than left. No areas of pneumonia. No effusions. COPD changes BONY STRUCTURES: Linear areas sclerosis with central lucency in the right humeral neck suggesting postsurgical changes UPPER ABDOMEN: Unremarkable. ADDITIONAL FINDINGS: No other significant abnormalities. IMPRESSION: 1. Biapical pleural thickening right greater than left with centrilobular emphysematous changes. Ridge like pleural thickening in the right upper lobe posteriorly accounting for the radiographic abnormality. These areas of pleural thickening may all be related to post inflammatory change/scarring. Due to the asymmetric nature, would recommend short-term CT follow-up in 3-6 months to confirm stability. 2. Centrilobular emphysema with COPD changes Dictated by: Jai Gamino MD 09/13/2020 06:19 Jai Gamino MD in [place] 09/13/2020 06:19
== END ==
PROVIDERS: PCP Emergency Medicine; Visit Provider Physician Assistant
DX: R93.89 Abnormal findings on diagnostic imaging of other specified body structures (principal)
CPT/HCPCS: 71250

== ENCOUNTER → 2020-09-24 09:53 | Outpatient (CLI) | payer MEDICAID, SELFPAY ==
--- NOTE | 2020-09-24 10:01 | XR_ITS ---
PROCEDURE: XR SHOULDER RT MIN 2V CLINICAL INDICATION: sp RT shoulder arthroscopy SX 07/01/20 Right shoulder pain COMPARISON: CR SHOU3R [id number] VIEWS from 04/21/2014 CR SHOU3R [id number] VIEWS from 08/27/2015 CR SHOU3R [id number] VIEWS from 12/23/2016 DX XR SHOULDER RT MIN 2V from 03/20/2020 FINDINGS: Lucency is now noted in the proximal aspect of the humerus at the metaphyseal diaphyseal junction and may be related to recent bicipital transfer. Please correlate with surgical history. No fracture or dislocation. Minimal osteoarthritic change of the glenohumeral joint. There is mild right apical pleural thickening not significantly changed. Other findings:None. IMPRESSION: Postsurgical changes with mild osteoarthritis of the glenohumeral joint. Dictated by: Jai Gamino MD 09/24/2020 10:49 Jai Gamino MD in [place] 09/24/2020 10:49
== END ==
PROVIDERS: PCP Emergency Medicine; Visit Provider Orthopaedic Surgery
DX: Z09 Encounter for follow-up examination after completed treatment for conditions other than malignant neoplasm (principal); M25.511 Pain in right shoulder
CPT/HCPCS: 73030

== ENCOUNTER 2021-04-10 08:58 | Emergency (ER) | payer MEDICAID, SELFPAY ==
[2021-04-10 09:00] VITALS: BP 124/76; PULSE 84; RESP 22; TEMP 37.7; O2SAT 100; BMI 16.5
--- NOTE | 2021-04-10 09:23 | HMH.EDUTC ---
[facility] [place] Clinical Impression: Bronchitis Sinusitis Qualifiers: Sinusitis location: unspecified location Chronicity: unspecified Qualified Code(s): J32.9 - Chronic sinusitis, unspecified Disposition: Home, Self-Care Condition on Discharge: Good Instructions: Sinusitis, Acute Bronchitis, DI for Sinusitis Additional Instructions: ? Start antibiotic today. Be sure to complete entire prescription even if feeling better ? Monitor temp. Tylenol every 4 hours as needed and / or ibuprofen every 6 hours as needed ( As long as your primary care physician has told you that it ok to take both. For fever/aches/pains ER if no less than 101 despite Tylenol or Motrin ? Humidifier/vaporizer or hot steamy shower ? Inhaler every 4-6 hours as needed like we discussed. If unsure how to use it, ask pharmacist to demonstrate how. Should help open airways and improve cough, wheezing, and shortness of breath ? Mucinex during the day for your cough and cough suppressant only at night. Be sure to drink lots of water. Insurance may not cover a prescriptions for mucinex. Might be cheaper to get 400mg tablets and take 2 tablet in the morning, mid-day and evening with lots of water. *Tessalon Perles will not cause drowsiness but use at bedtime to help stop cough so that you may get some rest. *Start steroid today. Helps with inflammation therefore, cough and wheezing. Follow directions on the package. Reviewed side effects. Patient reports taking them before. Follow up IMMEDIATELY for new or worsening of symptoms OR no noticeable improvement over the next 48-72 hours. 911 immediately for any life threatening symptoms such as chest pain or difficulty breathing Prescriptions: Benzonatate [Benzonatate 100mg cap] 100 mg PO Q8HP PRN #30 cap PRN Reason: Cough Transmission Status: Received by [facility] predniSONE [Prednisone 20mg Tab] 20 mg PO BID 5 Days #10 tab Transmission Status: Received by [facility] Azithromycin [Z-Marcos 250mg Tab] 250 mg PO DIRECTED #6 tab Transmission Status: Received by [facility] Referrals: Casey Molina MD [Primary Care Provider] - As needed Forms: Work/School Release Time of Disposition: 09:37 Medical Decision Making - Cong Inquiry Pt receiving controlled substance: No Cong was queried for this patient: No Vital Signs: 04/10/21 09:00 04/10/21 09:35 Temperature 99.8 F H 99.8 F H Temperature Source Oral Pulse Rate 84 Pulse Rate [Right Brachial] 84 Respiratory Rate 22 22 Blood Pressure 124/76 Blood Pressure [Right Arm] 124/76 Blood Pressure Mean [Right Arm] 92 Blood Pressure Source [Right Arm] Automatic Cuff Blood Pressure Position [Right Arm] Sitting 02 Sat by Pulse Oximetry 100 Oxygen Delivery Method Room Air Medical Decision Narrative: Discussed COVID testing and pt declined States that when she gets like this she gets a zpack and steriods and it clears it up for her she did not want to get tested [facility] [place] - General Stated complaint: weakness,cough,SOA, congestion Time Seen by Provider: 04/10/21 09:23 Mode of Arrival: Ambulatory Source of Information: Patient Limitations: No Limitations Description of Symptoms (Recalled from Triage Doc. by RN): PATIENT C/O CHEST CONGESTION, CHILLS, SINUS PRESSURE, AND COUGH WITH GREEN MUCOUS X 4 DAYS HEENT Symptoms (Recalled from RN notes): Yes Resp Symptoms (Recalled from RN notes): Yes Skin Symptoms (Recalled from RN notes): No MS Symptoms (Recalled from RN notes): No Functional Status (Recalled from RN notes): WNL - History of Present Illness Provider Complaint: Patient states that she gets bronchitis about this time every year States that she has been having sinus pressure, drainage in the back of her throat, cough and feels like it is trying to move into her chest States that today she was still having pressure and cough so she came in to get checked before it got worse - Related Data Home Medicatio
[2021-04-10 09:35] VITALS: BP 124/76; PULSE 84; RESP 22; TEMP 37.7; O2SAT 100
== END 2021-04-10 09:39 | disposition home or self-care (01) ==
PROVIDERS: Emergency Provider Nurse Practitioner; PCP Emergency Medicine
DX: J20.9 Acute bronchitis, unspecified (principal); J32.9 Chronic sinusitis, unspecified; F41.8 Other specified anxiety disorders; E78.5 Hyperlipidemia, unspecified; J44.9 Chronic obstructive pulmonary disease, unspecified; F17.210 Nicotine dependence, cigarettes, uncomplicated
CPT/HCPCS: 99202; G0463

== ENCOUNTER → 2022-06-24 10:15 | Outpatient (CLI) | payer MEDICARE, MEDICAID, SELFPAY ==
[2022-06-24 16:03] LABS: Alanine Aminotransferase 18 U/L (12-78); Albumin Level 4.5 g/dl (3.5-5.0); Albumin/Globulin Ratio 1.7 (1.1-1.8); Alkaline Phosphatase 102 U/L (38-126); Anion Gap 11.6 mEq/L (5-15); Aspartate Amino Transferase 27 U/L (14-36); Bilirubin,Total 0.4 mg/dl (0.2-1.3); Blood Urea Nitrogen 13 mg/dl (7-17); Calcium 9.4 mg/dl (8.4-10.2); Carbon Dioxide 26 mmol/L (22.0-30.0); Chloride 108 mmol/L (98-107); Chol/HDL Ratio 3.2 (1-3.5); Cholesterol 215 mg/dl (140-200); Estimated Glomerular Filt Rate 100 ml/min (>60); GFR (African American) 121 ML/MIN (>60); Globulin 2.6 g/dL (1.3-3.2); Glucose 109 mg/dl (74-100); HDL Cholesterol 67 mg/dl (40-60); Potassium 4.6 mmoL/L (3.5-5.1); Sodium 141 mmol/L (136-145); Total Protein,Serum 7.1 g/dl (6.3-8.2); Triglycerides 121 mg/dl (30-150); VLDL Cholesterol 24 mg/dL (0-40)
[2022-06-24 16:14] LABS: Direct LDL Cholesterol 112.63 mg/dL (100-129)
[2022-06-24 16:19] LABS: Basophils # 0.3 K/mm3 (0-0.2); Basophils % 3.4 % (0.1-2.0); Eosinophils # 0.1 K/mm3 (0.0-0.4); Eosinophils % 1.3 % (0.1-12.0); Hematocrit 51.9 % (37.0-47.0); Hemoglobin 16.5 g/dL (12.2-16.2); Lymphocytes # 2.7 K/mm3 (0.7-4.5); Lymphocytes % 29.3 % (10-50); Mean Corpuscular HGB Conc 31.7 g/dL (31.8-35.4); Mean Corpuscular Hemoglobin 30.3 pg (27.0-31.2); Mean Corpuscular Volume 95.5 fl (81-99); Mean Platelet Volume 9.7 fl (7.4-10.4); Monocytes # 0.5 K/mm3 (0.1-1.0); Neutrophils # 5.6 K/mm3 (1.8-7.8); Platelet Count 337 K/mm3 (142-424); Red Blood Count 5.44 M/mm3 (4.20-5.40); Red Cell Distribution Width 13.1 % (11.5-17.5); White Blood Count 9.2 K/mm3 (4.8-10.8)
[2022-06-24 16:22] LABS: Free T4 (Free Thyroxine) 1.53 ng/dl (0.78-2.19)
[2022-06-24 16:23] LABS: 25-OH Vitamin D, Total 17.6 ng/mL (30-100)
[2022-06-24 17:13] LABS: Thyroid Stimulating Hormone 3.84 uIU/mL (0.465-4.68)
== END ==
PROVIDERS: PCP Emergency Medicine; Visit Provider Emergency Medicine
DX: E78.5 Hyperlipidemia, unspecified (principal); J44.9 Chronic obstructive pulmonary disease, unspecified; F32.A Depression, unspecified; F41.9 Anxiety disorder, unspecified; E55.9 Vitamin D deficiency, unspecified
CPT/HCPCS: 80053; 80061; 82306; 84439; 84443; 85025

== ENCOUNTER → 2022-09-08 14:44 | Outpatient (CLI) | payer MEDICARE, MEDICAID, SELFPAY ==
--- NOTE | 2022-09-08 14:44 | CT_ITS ---
FINAL REPORT CLINICAL HISTORY: sinusitis FINDINGS: The paranasal sinuses are well aerated. The ostiomeatal units are clear. There is no fracture. There are no air-fluid levels. IMPRESSION: Unremarkable. Reviewed, Interpreted and Dictated by Fahad Sun MD Transcribed by Leland Lara Authenticated and [facility]
== END ==
PROVIDERS: PCP Emergency Medicine; Visit Provider Student in an Organized Health Care Education/Training Program
DX: J32.9 Chronic sinusitis, unspecified (principal)
CPT/HCPCS: 70486

== ENCOUNTER → 2023-02-12 07:56 | Outpatient (CLI) | payer MEDICARE, MEDICAID, SELFPAY ==
--- NOTE | 2023-02-12 07:59 | CA_ITS ---
FINAL REPORT TECHNIQUE: Grayscale, color Doppler and duplex Doppler ultrasound of the kidneys, aorta and renal arteries was performed. Multiple velocities were measured. CLINICAL HISTORY: HTN COMPARISON: None FINDINGS: Aorta velocity: 97 cm/sec Right kidney: 9.9 cm. No evidence of hydronephrosis or mass. Right intrarenal RI: 0.77 Right renal artery velocity: 163.7 cm/sec. Right RAR (Renal artery-Aortic Ratio): 1.7 Left Kidney: 9.9 cm. No evidence of hydronephrosis or mass. Left intrarenal RI: 0.8 Left renal artery velocity: 209.5 cm/sec. Left RAR (Renal Artery-Aortic Ratio): 2.2 IMPRESSION: No evidence of significant stenosis in the right renal artery. Less than 60% stenosis in the left renal artery. CT angiogram, postcontrast MR, or catheter angiogram would be more sensitive for evaluation of possible renal artery stenosis. Reviewed, Interpreted and Dictated by Mitch Leonardo III, MD Transcribed by Jena Apodaca Authenticated and [facility]
== END ==
PROVIDERS: PCP Emergency Medicine; Visit Provider Emergency Medicine
DX: I10 Essential (primary) hypertension (principal); Z72.0 Tobacco use
CPT/HCPCS: 93976

== ENCOUNTER → 2023-04-14 23:00 | Outpatient (CLI) | payer MEDICARE, SELFPAY ==
[2023-04-14 20:19] LABS: Amphetamine/Metha Screen,Urine Negative ng/ml (<1000)
[2023-04-14 20:20] LABS: Barbiturates Screen,Urine Negative ng/ml (<200); Benzodiazepines Screen,Urine Negative ng/ml (<200)
[2023-04-14 20:22] LABS: Cocaine Screen,Urine Negative ng/ml (<300)
[2023-04-14 20:23] LABS: Opiate Screen,Urine Negative ng/ml (<300); Phencyclidine Screen,Urine Negative ng/ml (<25)
[2023-04-14 20:37] LABS: Cannabinoid Screen,Urine Positive ng/ml (<50)
[2023-04-14 20:40] LABS: Methadone Screen,Urine Negative ng/ml (<300)
== END ==
PROVIDERS: PCP Physician Assistant; Visit Provider Physician Assistant
DX: Z79.899 Other long term (current) drug therapy (principal)
CPT/HCPCS: 80305

== ENCOUNTER 2023-08-03 14:17 | Outpatient (CLI) | payer MEDICARE, SELFPAY ==
--- NOTE | 2023-08-03 14:18 | CT_ITS ---
FINAL REPORT TECHNIQUE: Thin section axial images were obtained from the lung apices to the upper abdomen by computed tomography. Reformatted images were obtained and reviewed. This study was performed with techniques to keep radiation doses al low as reasonably achievable (ALARA). Individualized dose reduction techniques using automated exposure control or adjustment of mA and/or kV according to the patient's size were employed. CLINICAL HISTORY: lung cancer screening smoker, 1/2 ppd x 40 years FINDINGS: CHEST CT LOW DOSE 68-year-old female, current smoker, [id number] history. CTDI vol (mGy): 2.9 DLP (mGy-cm): 103.42 There is no axillary adenopathy. There is no mediastinal or hilar mass or adenopathy. The heart is normal in size. There is no pericardial or pleural effusion. Advanced changes of centrilobular emphysema are present. There is biapical pleural and parenchymal scarring present, more prominent on the right than the left. Lung window images demonstrate no suspicious infiltrate or nodule. Limited images of the upper abdomen are unremarkable. IMPRESSION: Lung-RADS category 2. Recommend 12 month follow up low dose chest CT. Reviewed, Interpreted and Dictated by Fahad Sun MD Transcribed by Jena Apodaca Authenticated and . [facility]
== END 2023-08-03 23:59 ==
PROVIDERS: PCP Physician Assistant; Visit Provider Physician Assistant
DX: Z87.891 Personal history of nicotine dependence (principal)
CPT/HCPCS: 71271

== ENCOUNTER 2023-12-31 15:31 | Emergency (ER) | payer MEDICARE, SELFPAY ==
[2023-12-31 16:56] VITALS: BP 144/53; PULSE 68; RESP 20; TEMP 36.6; O2SAT 99; BMI 16.2
--- NOTE | 2023-12-31 16:57 | EXP.UTC ---
Discharge Plan Disposition Patient Disposition: Home, Self-Care Condition: Good Prescriptions Prescriptions: New ciprofloxacin HCl 0.3 % drops See Rx Instructions .ROUTE .COMPLEX Qty: 5 0RF Rx Instructions: put 1 drp in left eye every 2hr x2days; then 4 times/day x5days No Action clonazepam [Klonopin] 0.5 mg tablet 0.5 mg PO TID Qty: 90 0RF loratadine [Claritin] 10 mg tablet 10 mg PO DAILY Qty: 90 0RF Trelegy Ellipta 100-62.5-25 mcg blister with device 1 inh IH DAILY Qty: 60 5RF ibuprofen 800 mg tablet 800 mg PO TID PRN (Reason: Pain) Qty: 90 2RF Rx Instructions: TAKE 1 TABLET BY MOUTH EVERY 8 HOURS albuterol sulfate [Ventolin HFA] 90 mcg/actuation HFA aerosol inhaler 1 inh inhalation Q4-6H PRN (Reason: shortness of breath or wheezing) Qty: 8.5 2RF Referrals Follow up/Referrals: Tamika Loredo MD [Primary Care Provider] - See instructions Activity Restrictions/Add. Instructions Additional Instructions/Restrictions: Use the eye drops as directed. Don't wear your contacts. Make sure you start using a new pair of contacts when you resume wearing them. Strict hand washing in the house hold, because conjunctivitis is very contagious. Follow up with your regular doctor. GO TO THE ER FOR ANY WORSENING SYMPTOMS OR CONCERNS Clinical Impressions Clinical Impression: Acute conjunctivitis, left eye Stand Alone Forms Stand Alone Forms: Work/School Release Instructions Patient Instructions: How to Instill Eye Drops, Conjunctivitis, DI for Conjunctivitis Print Language Print Language: Salvadorean Discharge ED Provider: Sukumar [facility] General Stated complaint: possible pink eye Time Seen by Provider: 12/31/23 16:57 History of Present Illness Provider Complaint: She states that for the past 2 days she has had left eye irritation, redness, and matting with yellowish drainage. She denies any injury or foreign body. Related Data Previous Rx's ?Medication ?Instructions ?Recorded clonazepam 0.5 mg tablet (Klonopin) 0.5 mg PO TID #90 tabs 04/14/23 loratadine 10 mg tablet (Claritin) 10 mg PO DAILY #90 tabs 07/13/23 fluticasone fur. 100 mcg-umeclid 1 inh inhalation DAILY #60 ea 10/27/23 62.5 mcg-vilant 25 mcg inhalat.powder (Trelegy Ellipta) ibuprofen 800 mg tablet 800 mg PO TID PRN Pain #90 tabs 10/27/23 albuterol sulfate 90 mcg/actuation 1 inh inhalation Q4-6H PRN 11/02/23 aerosol inhaler (Ventolin HFA) shortness of breath or wheezing #8.5 grams ciprofloxacin HCl 0.3 % eye drops See Rx Instructions ophthalmic 12/31/23 (eye) .COMPLEX #5 mL Allergies Allergy/AdvReac Type Severity Reaction Status Date / Time codeine Allergy Verified 07/13/23 09:42 Iodinated Contrast Media Allergy Anaphylaxis Verified 07/13/23 09:42 [Iodinated Contrast Media - Oral and] Penicillins Allergy Hives Verified 07/13/23 09:42 Sulfa (Sulfonamide Allergy Hives Verified 07/13/23 09:42 Antibiotics) escitalopram AdvReac Severe Headache,vo Verified 07/13/23 09:42 leonel melendez shakin g cefdinir AdvReac Intermediate Vomiting Verified 07/13/23 09:42 [facility] Disclaimer: The information contained in this section may have been updated after the patient was seen, as this information can be updated by other users. Medical History Anxiety and depression COPD (chronic obstructive pulmonary disease) Hyperlipidemia PTSD (post-traumatic stress disorder) Surgical History History of arthroscopy of right shoulder [place] teeth extracted Family History Other Coronary artery disease Hyperlipidemia Hypertension Stroke Social History Smoking Status: Light tobacco smoker tobacco type: cigarettes packs per day: 1 alcohol intake: never substa
[2023-12-31 17:16] VITALS: BP 144/53; PULSE 68; RESP 18; TEMP 36.6; O2SAT 99
== END 2023-12-31 17:27 | disposition home or self-care (01) ==
PROVIDERS: Emergency Provider Nurse Practitioner Family; PCP Family Medicine
DX: H10.32 Unspecified acute conjunctivitis, left eye (principal)
CPT/HCPCS: 99212; 99214; G0463

== ENCOUNTER 2024-02-13 19:11 | Emergency (ER) | payer MEDICARE, SELFPAY ==
[2024-02-13 19:27] VITALS: BP 149/95; PULSE 76; RESP 18; TEMP 36.7; O2SAT 98; BMI 16.0
[2024-02-13 19:35] LABS: Microscopic, Urine URINE MICROSCOPIC (MICROSCOPIC)
[2024-02-13 19:42] LABS: Appearance,Urine CLEAR (Clear); Blood, Urine 3+ (Negative); Color,Urine YELLOW (Yellow); Glucose,Urine (UA) Negative (Negative); Ketones,Urine TRACE (Negative); Leukocyte Esterase,Urine TRACE (Negative); Nitrate,Urine Negative (Negative); Protein,Urine 2+ (Negative); Specific Gravity, Urine 1.025 (1.005-1.030)
[2024-02-13 19:53] LABS: Bilirubin,Urine 2+ (Negative)
[2024-02-13 19:54] LABS: Amorphous Sediment,Urine 1+ /lpf; Bacteria,Urine 1+ /lpf; RBC,Urine TNTC #/hpf (0-3); Squamous Epithelial Cell,Urine Occasional #/hpf (0-5)
[2024-02-13] MEDS: levoFLOXacin 500MG TAB 500 MG PO (20:05)
[2024-02-13 20:06] VITALS: BP 149/95; PULSE 76; RESP 18; TEMP 36.7
--- NOTE | 2024-02-13 20:09 | EXP.UTC ---
Discharge Plan Disposition Patient Disposition: Home, Self-Care Condition: Good Prescriptions Prescriptions: New phenazopyridine [Pyridium] 200 mg tablet 200 mg PO Q8H 2 Days Qty: 6 0RF levofloxacin 500 mg tablet 500 mg PO DAILY 7 Days Qty: 7 0RF ondansetron 4 mg Tablet,Disintegrating 4 mg PO Q8H PRN (Reason: Nausea) Qty: 12 0RF Referrals Follow up/Referrals: Tamika Loredo MD [Primary Care Provider] - See instructions Activity Restrictions/Add. Instructions Additional Instructions/Restrictions: Drink plenty of fluids. Take tylenol or ibuprofen for pain or fever. Take the medications as directed. Follow up with your regular doctor. GO TO THE ER FOR ANY WORSENING SYMPTOMS The pyridium will make your urine turn orange, this is an expected side effect. It will stain your clothes if it comes into contact with them. We will culture the urine. That will tell what bacteria is causing your infection and which antibiotics will treat it best.This test takes 3 days to complete. Clinical Impressions Clinical Impression: UTI (urinary tract infection) Stand Alone Forms Stand Alone Forms: Work/School Release Instructions Patient Instructions: Urine Culture, DI for Urinary Tract Infection (UTI), Phenazopyridine Print Language Print Language: Irish Discharge ED Provider: Sukumar Shelton [facility] [place] General Stated complaint: blood in urine Mode of Arrival: Ambulatory Source of Information: Patient Time Seen by Provider: 02/13/24 19:55 Description of Symptoms (Recalled from Triage Doc. by RN): BLOOD IN URINE THIS MORNING, INTERMITTENT LOWER BACK PAIN.FALNKS, FREQUENCY HEENT Symptoms (Recalled from RN notes): No Resp Symptoms (Recalled from RN notes): No Skin Symptoms (Recalled from RN notes): No MS Symptoms (Recalled from RN notes): No Functional Status (Recalled from RN notes): WNL History of Present Illness Provider Complaint: She states that since last night she has had low back pain, dysuria, hematuria, and urinary frequency. Related Data Previous Rx's ?Medication ?Instructions ?Recorded levofloxacin 500 mg tablet 500 mg PO DAILY 7 days #7 tabs 02/13/24 ondansetron 4 mg disintegrating 4 mg PO Q8H PRN Nausea #12 tabs 02/13/24 tablet phenazopyridine 200 mg tablet 200 mg PO Q8H 2 days #6 tabs 02/13/24 (Pyridium) Allergies Allergy/AdvReac Type Severity Reaction Status Date / Time codeine Allergy Verified 07/13/23 09:42 Iodinated Contrast Media Allergy Anaphylaxis Verified 07/13/23 09:42 [Iodinated Contrast Media - Oral and] Penicillins Allergy Hives Verified 07/13/23 09:42 Sulfa (Sulfonamide Allergy Hives Verified 07/13/23 09:42 Antibiotics) escitalopram AdvReac Severe Headache,vo Verified 07/13/23 09:42 leonel melendez shakin g cefdinir AdvReac Intermediate Vomiting Verified 07/13/23 09:42 Worker's Comp Is this a Worker's Comp case?: No [facility] Disclaimer: The information contained in this section may have been updated after the patient was seen, as this information can be updated by other users. Medical History Anxiety and depression COPD (chronic obstructive pulmonary disease) Hyperlipidemia PTSD (post-traumatic stress disorder) Surgical History History of arthroscopy of right shoulder [place] teeth extracted Family History Other Coronary artery disease Hyperlipidemia Hypertension Stroke Social History Smoking Status: Light tobacco smoker tobacco type: cigarettes packs per day: 1 alcohol intake: never substance use type: denies use current occupational status: other Travel in the last 8 weeks: None household members: significant other housing: apartment caffeine: Yes ROS Obtained: Yes All systems reviewed & no additional complaints except as documented Constitutional Constitutional: Reports system reviewed and no additional complaints, except as documented, Denies chills and Denies fever(s) Eyes Eyes: Denies eye discharge ENT Ears, Nose, Mouth, and Throat: Denies dysphagia, Denies sore throat and Denies throat swelling Cardiovascular Cardiovascular: Denies chest pain and Denies dyspnea Respiratory Respiratory: Denies chest congestion, Denies cough and Denies dyspnea Gastrointestinal Gastrointestingal: Denies abdominal pain, constipation, diarrhea, dysphagia, nausea or vomiting Genitourinary Female Genitourinary: Reports as per HPI, Reports dysuria, Reports urinary frequency, Denies urinary incontinence, Reports urinary hesitancy and Reports urinary urgency Musculoskeletal Musculoskeletal: Denies arthralgias and Reports back pain Integumentary/Breasts Skin/Breast: Denies rash Neurologic Neurologic: Denies paresthesias Allergic/Immunologic Allergic/Immunologic: Denies throat swelling Physical Exam General General appearance: alert and in no apparent distress Head Head exam: atraumatic and normocephalic Eye Eye exam: Present normal appearance, PERRL and EOMI ENT ENT exam: Present normal exam, mucous membranes moist, TM's normal bilaterally and normal external ear exam Neck Neck exam: Present normal inspection, full ROM and trachea midline; Absent tenderness, meningismus or lymphadenopathy Chest Chest inspection: Present normal inspection and symmetric chest wall rise; Absent tenderness Respiratory Respiratory exam: Present normal lung sounds bilaterally; Absent respiratory distress, wheezes or stridor Cardiovascular Cardiovascular exam: Present regular rate, normal rhythm and normal heart sounds Abdominal Exam Abdominal exam: Present soft and normal bowel sounds; Absent distention, tenderness, guarding, rebound, rigidity, incision, psoas sign, obturator sign, heel tap sign, Hunter's sign, Rovsing's sign or tenderness at McBurney's Point Extremities Exam Extremities exam: Present normal inspection, full ROM and normal capillary refill; Absent tenderness, edema, joint swelling, calf tenderness or cyanosis Back Exam Back exam: Present normal inspection and full ROM; Absent tenderness, CVA tenderness (R) or CVA tenderness (L) Neurological Exam Neurological exam: Present alert, oriented X3 and normal gait Psychiatric Psychiatric exam: Present normal affect and normal mood Skin Skin exam: Present warm, dry, intact and normal color Lymphatic Lymphatic Findings: no adenopathy Medical Decision Making Medical Records Medical records reviewed: No I reviewed the patient's medical records. Screening: Per USPSTF and CDC recommendations, given the prevalence of disease in our region, it is our hospital?s policy to screen for HIV and viral Hepatitis for all patients aged 18 and over and those with ongoing risk factors. Cong Inquiry Pt receiving controlled substance: No Vital Signs: 02/13/24 19:27 02/13/24 20:06 Temperature 98.0 F 98.0 F Temperature Source Oral Pulse Rate 76 Pulse Rate [Left Brachial] 76 Respiratory Rate 18 18 Blood Pressure 149/95 H Blood Pressure [Left Arm] 149/95 H Blood Pressure Mean [Left Arm] 113 02 Sat by Pulse Oximetry 98 Lab Data Lab results reviewed: Yes I reviewed the patient's lab results. Lab Results 02/13/24 19:19: Urine Color Yellow, Urine Appearance Clear, Urine pH 6.0, Ur Specific [place] 1.025, Urine Protein 2+ A, Urine Glucose (UA) Negative, Urine Ketones Trace, Urine Blood 3+ A, Urine Nitrate Negative, Urine Bilirubin 2+ A, Urine Urobilinogen 1.0, Ur Leukocyte Esterase Trace, Urine RBC Tntc, Urine WBC 3-5, Ur Squamous Epith Cells Occasional, Amorphous Sediment 1+, Urine Bacteria 1+ Orders (Tests/Meds): ED MEDICATIONS Generic Name Dose Route Start Last Admin Trade Name Freq PRN Reason Stop Dose Admin Levofloxacin 500 mg 02/13/24 20:02 02/13/24 20:05 Levofloxacin 500mg Tab PO 02/13/24 20:03 500 mg ONCE ONE Administration ORDERS Category Date Time Status UA [Urinalysis and Microscopic] Stat Lab 02/13/24 19:19 Completed
== END 2024-02-13 20:12 | disposition home or self-care (01) ==
PROVIDERS: Emergency Provider Nurse Practitioner Family; PCP Family Medicine
DX: N39.0 Urinary tract infection, site not specified (principal)
CPT/HCPCS: 81001; 99213; G0381

== ENCOUNTER 2024-08-07 09:36 | Outpatient (CLI) | payer MEDICARE, SELFPAY ==
--- NOTE | 2024-08-07 09:42 | XR_ITS ---
FINAL REPORT CLINICAL HISTORY: LT HAND PAIN. PAIN AROUND THUMB FINDINGS: LEFT HAND Three views demonstrate no acute fracture or dislocation. COPD is noted. There is mild diffuse degenerative change. The soft tissues are unremarkable. IMPRESSION: Degenerative changes with no acute bony abnormality. Reviewed, Interpreted and Dictated by Alexander Mc MD Transcribed by Yakelin Davey Authenticated and [facility]
== END 2024-08-07 23:59 | disposition home or self-care (01) ==
LOC: RAD 09:39
PROVIDERS: PCP Family Medicine; Visit Provider Nurse Practitioner Family
DX: M79.642 Pain in left hand (principal)
CPT/HCPCS: 73130